=== PATIENT | male | born 1970 | race Hispanic/Latino ===

== ENCOUNTER 2019-01-27 14:36 | Emergency (ER) | payer BC, OTHER ==
--- NOTE | 2019-01-27 15:24 | RAD REPORT ---
EXAM DESCRIPTION: RAD - Ankle Left 3 View - 01/27/2019 3:12 pm CLINICAL HISTORY: PAIN COMPARISON: <Comparisons> FINDINGS: Soft tissue swelling is seen about the ankle. Large posterior and plantar calcaneal spurs noted. No acute fractures demonstrated.
--- NOTE | 2019-01-27 15:49 | ER ---
Nurse's Notes [facility] Name: Tyson Rivas Age: 48 yrs Sex: Male : 1970 Arrival Date: 01/27/2019 Time: 14:37 Bed 11 Private MD: Diagnosis: Sprain of ankle Presentation: 01/27 14:40 Presenting complaint: Patient states: I rolled my left ankle at work. Transition of la1 care: patient was not received from another setting of care. Onset of symptoms was January 27, 2019. Risk Assessment: Do you want to hurt yourself or someone else? Patient reports no desire to harm self or others. Initial Sepsis Screen: Does the patient meet any 2 criteria? No. Patient's initial sepsis screen is negative. Does the patient have a suspected source of infection? No. Patient's initial sepsis screen is negative. Care prior to arrival: None. 14:40 Method Of Arrival: Wheelchair la1 14:40 Acuity: BARTOLO 4 la1 Historical: - Allergies: 14:39 No Known Allergies; la1 - PMHx: 14:39 Diabetes - NIDDM; Hypertension; la1 - Immunization history:: Adult Immunizations up to date. - Social history:: Smoking status: Patient/guardian denies using tobacco. - Ebola Screening: : No symptoms or risks identified at this time. Screenin:41 Abuse screen: Denies threats or abuse. Nutritional screening: No deficits noted. la1 Tuberculosis screening: No symptoms or risk factors identified. Fall Risk None identified. Assessment: 14:41 General: Appears in no apparent distress. Behavior is calm, cooperative. Pain: la1 Complains of pain in left lateral malleolus. Neuro: Level of Consciousness is awake, alert, obeys commands. Cardiovascular: Capillary refill < 3 seconds Patient's skin is warm and dry. Respiratory: Airway is patent Respiratory effort is even, unlabored. GI: No signs and/or symptoms were reported involving the gastrointestinal system. : No signs and/or symptoms were reported regarding the genitourinary system. Musculoskeletal: Circulation, motion, and sensation intact. Capillary refill < 3 seconds, is brisk, in bilateral toes. Range of motion: limited in left ankle. 15:30 Reassessment: Patient appears in no apparent distress at this time. No changes from hb previously documented assessment. Patient and/or family updated on plan of care and expected duration. Pain level reassessed. Patient is alert, oriented x 3, equal unlabored respirations, skin warm/dry/pink. Vital Signs: 14:40 BP 138 / 97; Pulse 83; Resp 16; Temp 97.9(TE); Pulse Ox 98% on R/A; Weight 136.08 kg; la1 Height 5 ft. 6 in. (167.64 cm); 14:40 Body Mass Index 48.42 (136.08 kg, 167.64 cm) la1 ED Course: 14:37 Patient arrived in ED. as 14:39 Arm band placed on left wrist. la1 14:40 Kandy Redman FNP-C is [facility]. kb 14:40 Lyle Grubbs MD is Attending Physician. kb 14:41 Triage completed. la1 14:41 Patient has correct armband on for positive identification. la1 15:13 Ankle Left 3 View XRAY In Process Unspecified. EDMS 16:00 Lisa Dong, RN is Primary Nurse. hb 16:00 No provider procedures requiring assistance completed. Patient did not have IV access hb during this emergency room visit. Administered Medications: No medications were administered Outcome: 15:47 Discharge ordered by MD. kb 16:00 Discharged to home ambulatory, with crutches. hb 16:00 Condition: stable 16:00 Discharge instructions given to patient, Instructed on discharge instructions, follow up and referral plans. medication usage, crutch walking, Demonstrated understanding of instructions, follow-up care, medications, crutch walking, Prescriptions given X 1. 16:01 Patient left the ED. hb Signatures: Dispatcher [employer] EDMI Kandy Redman FNP-C FNP-Ckb Martinez, Amelia as Attema, Lee, RN RN la1 Lisa Dong, RN RN hb
--- NOTE | 2019-01-27 15:49 | EDPHYS ---
Physician Documentation [facility] Name: Tyson Rivas Age: 48 yrs Sex: Male : 1970 Arrival Date: 01/27/2019 Time: 14:37 Bed 11 Private MD: ED Physician Lyle Grubbs HPI: 01/27 15:46 This 48 yrs old Male presents to ER via Wheelchair with complaints of Ankle kb Injury. 15:46 The patient presents with pain, that is acute. The complaints affect the left ankle. kb Onset: The symptoms/episode began/occurred yesterday. Context: The problem was sustained at home, resulted from twisted ankle, The patient is unable to bear weight. The patient is not able to ambulate. Associated signs and symptoms: The patient has no apparent associated signs or symptoms. Modifying factors: The symptoms are alleviated by nothing, the symptoms are aggravated by weight bearing. Severity of symptoms: At their worst the symptoms were mild, in the emergency department the symptoms are unchanged. The patient has not experienced similar symptoms in the past. The patient has not recently seen a physician. Historical: - Allergies: 14:39 No Known Allergies; la1 - PMHx: 14:39 Diabetes - NIDDM; Hypertension; la1 - Immunization history:: Adult Immunizations up to date. - Social history:: Smoking status: Patient/guardian denies using tobacco. - Ebola Screening: : No symptoms or risks identified at this time. ROS: 15:46 Constitutional: Negative for fever, chills, and weight loss, Cardiovascular: Negative kb for chest pain, palpitations, and edema, Respiratory: Negative for shortness of breath, cough, wheezing, and pleuritic chest pain, Abdomen/GI: Negative for abdominal pain, nausea, vomiting, diarrhea, and constipation, Back: Negative for injury and pain, Skin: Negative for injury, rash, and discoloration, Neuro: Negative for headache, weakness, numbness, tingling, and seizure. 15:46 MS/extremity: Positive for injury or acute deformity, pain, tenderness, of the left ankle. Exam: 15:44 Constitutional: This is a well developed, well nourished patient who is awake, alert, kb and in no acute distress. Head/Face: Normocephalic, atraumatic. Chest/axilla: Normal chest wall appearance and motion. Nontender with no deformity. No lesions are appreciated. Cardiovascular: Regular rate and rhythm with a normal S1 and S2. No gallops, murmurs, or rubs. Normal PMI, no JVD. No pulse deficits. Respiratory: Lungs have equal breath sounds bilaterally, clear to auscultation and percussion. No rales, rhonchi or wheezes noted. No increased work of breathing, no retractions or nasal flaring. Abdomen/GI: Soft, non-tender, with normal bowel sounds. No distension or tympany. No guarding or rebound. No evidence of tenderness throughout. Skin: Warm, dry with normal turgor. Normal color with no rashes, no lesions, and no evidence of cellulitis. Neuro: Awake and alert, GCS 15, oriented to person, place, time, and situation. Cranial nerves II-XII grossly intact. Motor strength 5/5 in all extremities. Sensory grossly intact. Cerebellar exam normal. Normal gait. 15:44 Musculoskeletal/extremity: Extremities: grossly normal except: noted in the left ankle: pain, ROM: intact in all extremities, Circulation is intact in all extremities. Sensation intact. Weight bearing: is unable to bear weight. Vital Signs: 14:40 BP 138 / 97; Pulse 83; Resp 16; Temp 97.9(TE); Pulse Ox 98% on R/A; Weight 136.08 kg; la1 Height 5 ft. 6 in. (167.64 cm); 14:40 Body Mass Index 48.42 (136.08 kg, 167.64 cm) la1 MDM: 14:45 Patient medically screened. [facility] 15:44 Data reviewed: vital signs, nurses notes. Data interpreted: Pulse oximetry: on room air kb is 98 %. Interpretation: normal. Counseling: I had a detailed discussion with the patient and/or guardian regarding: the historical points, exam findings, and any diagnostic results supporting the discharge/admit diagnosis, radiology results, the need for outpatient follow up, a orthopedic surgeon, to return to the emergency department if symptoms worsen or persist or if there are any questions or concerns that arise at home. 01/27 14:46 Order name: Ankle Left 3 View XRAY; Complete Time: 15:28 kb 01/27 15:28 Order name: Kevon Wrap; Complete Time: 16:01 kb 01/27 15:28 Order name: Crutches; Complete Time: 16:01 kb Administered Medications: No medications were administered Disposition: 01/28 07:08 Co-signature as Attending Physician, Lyle Grubbs MD I agree with the assessment and nancy plan of care. Disposition: 01/27/19 15:47 Discharged to Home. Impression: Sprain of ankle. - Condition is Stable. - Discharge Instructions: Ankle Sprain, [id number]. - Prescriptions for Diclofenac Sodium 75 mg Oral Tablet, Delayed Release (E.C.) - take 1 tablet by ORAL route 2 times per day As needed; 30 tablet. - Work release form, Medication Reconciliation Form, Thank You Letter, Antibiotic Education, Prescription Opioid Use form. - Follow up: Emergency Department; When: As needed; Reason: Worsening of condition. Follow up: Private Physician; When: 2 - 3 days; Reason: Recheck today's complaints, Continuance of care, Re-evaluation by your physician. Signatures: Dispatcher [employer] EDAZ Kandy Redman, PHOTONICS ENGINEERING TECHNICIAN-C PHOTONICS ENGINEERING TECHNICIAN-Ckb Lyle Grubbs MD MD cha Attema, Lee, RN RN la1 Lisa Dong, RN RN hb Corrections: (The following items were deleted from the chart) 01/27 16:01 15:47 01/27/2019 15:47 Discharged to Home. Impression: Sprain of ankle. Condition is hb Stable. Forms are Medication Reconciliation Form, Thank You Letter, Antibiotic Education, Prescription Opioid Use. Follow up: Emergency Department; When: As needed; Reason: Worsening of condition. Follow up: Private Physician; When: 2 - 3 days; Reason: Recheck today's complaints, Continuance of care, Re-evaluation by your physician. kb
== END 2019-01-27 16:01 | disposition home or self-care (01) ==
LOC: ER 14:36
DX: S93.402A Sprain of unspecified ligament of left ankle, initial encounter (principal); X50.1XXA Overexertion from prolonged static or awkward postures, initial encounter; Y93.9 Activity, unspecified; Y92.009 Unspecified place in unspecified non-institutional (private) residence as the place of occurrence of the external cause; I10 Essential (primary) hypertension
CPT/HCPCS: 99283